=== PATIENT | male | born 1980 | race Caucasian/White ===

== ENCOUNTER 2016-12-15 20:49 | Emergency (ER) | payer MEDICAID ==
[~2016-12-15] VITALS: Ht 177.8 cm; Wt 84.1 kg
[~2016-12-15 20:49] MED LIST: CLIN-78 PO; NPR500T PO
[2016-12-15 21:09] VITALS: BP 118/72; PULSE 103; RESP 18; O2SAT 100
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
[2016-12-15] MEDS ORDERED: 0.9% Sodium Chloride 1,000 ML IV ONE (21:27)
[2016-12-15 21:30] VITALS: BP 137/91; PULSE 96; RESP 21; O2SAT 99
[2016-12-15] MEDS ORDERED: Ondansetron 2 mg/mL 2 mL Inj IVPUSH ONE (21:30)
[2016-12-15] MEDS: HYDROmorphone 0.5 mg/0.5 mL iSecure Syringe IVPUSH PRN (21:42)
[2016-12-15 21:43] LABS: BASOPHILS % (AUTO) 0.7 % (0-3); EOSINOPHILS % (AUTO) 0.9 % (0-5); Mean Corpuscular Hemoglobin 32.4 pg (27.0-35.0); Mean Corpuscular Volume 89.7 fL (81-100); NEUTROPHILS % (AUTO) 59.1 % (40-74); Platelet Count 302 bil/L (150-400)
[2016-12-15 22:06] LABS: INR 0.87 ratio
[2016-12-15 22:17] LABS: Magnesium 2.4 mg/dL (1.6-2.6)
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
[2016-12-15 23:11] LABS: APPEARANCE,URINE CLEAR (CLEAR,HAZY); COLOR,URINE YELLOW (YELLOW); OCCULT BLOOD,URINE TRACE (NEGATIVE); PH,URINE 5.5 (5.0-8.0); UROBILINOGEN,URINE NORMAL (NORMAL)
[2016-12-16] MEDS: HYDROmorphone 0.5 mg/0.5 mL iSecure Syringe IVPUSH PRN (00:10)
[2016-12-16] MEDS ORDERED: IBUP-1827 PO (01:49)
[2016-12-16] MEDS ORDERED: _HYDROcodone/APAP 5-325 mg Tablet PO PRN (01:50)
[2016-12-16 02:18] VITALS: BP 136/88; PULSE 82; RESP 18; O2SAT 98
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
== END 2016-12-16 02:19 | disposition home or self-care (01) ==
LOC: SED 20:49
DX: S32.010A Wedge compression fracture of first lumbar vertebra, initial encounter for closed fracture (principal); M43.16 Spondylolisthesis, lumbar region; M25.561 Pain in right knee; F10.129 Alcohol abuse with intoxication, unspecified; F17.200 Nicotine dependence, unspecified, uncomplicated; V86.59XA Driver of other special all-terrain or other off-road motor vehicle injured in nontraffic accident, initial encounter; Y93.89 Activity, other specified; Y92.488 Other paved roadways as the place of occurrence of the external cause; Y99.8 Other external cause status
CPT/HCPCS: 36415; 71010; 71260; 73562; 74177; 80053; 81001; 83690; 83735; 85025; 85610; 85730; 96361; 96374; 96375; 96376; 99285; G0390; G0480; J1170; J2405; J7030; Q9967